=== PATIENT | male | born 1970 | race Hispanic/Latino ===

== ENCOUNTER 2017-05-08 14:06 | Emergency (ER) | payer OTHER ==
[2017-05-08 14:14] VITALS: TEMP 98.5; O2SAT 100
[2017-05-08 14:45] VITALS: PULSE 81
--- NOTE | 2017-05-08 15:15 | C.PDOC ---
History Of Present Illness 46 y/o male with PMHx of HTN, sleep apnea and Anxiety presents to ED with complaints of mid sternal chest tightness radiating to right side since this morning after cardio work out. Patient states chest pain has been intermittent and has noticed being out of breath, states she had similar episode 1 week ago but resolved on its own. Patient denies cough, nausea, diaphoresis, headache, fever, chills or any other complaints at this time. Time Seen by Provider: 05/08/17 14:23 Chief Complaint (Nursing): Chest Pain History Per: Patient History/Exam Limitations: no limitations Onset/Duration Of Symptoms: Days Current Symptoms Are (Timing): Still Present Quality: Tightness Past Medical History Reviewed: Historical Data, Nursing Documentation, Vital Signs Vital Signs: Last Vital Signs Temp 98.5 F 05/08/17 14:12 Pulse 81 05/08/17 14:38 Resp 20 05/08/17 14:38 BP 119/78 05/08/17 14:38 Pulse Ox 100 05/08/17 17:47 - Medical History PMH: Anxiety, HTN, Sleep Apnea Surgical History: Hernia Repair Family History: States: No Known Family Hx - Social History Hx Alcohol Use: Yes Hx Substance Use: Yes - Immunization History Hx Influenza Vaccination: No Review Of Systems Except As Marked, All Systems Reviewed And Found Negative. Cardiovascular: Positive for: Chest Pain Respiratory: Positive for: Shortness of Breath Physical Exam - Physical Exam Appears: Non-toxic, No Acute Distress Skin: Warm, Dry, No Rash Head: Atraumatic, Normacephalic Oral Mucosa: Moist Neck: Normal ROM, Supple Chest: Symmetrical, No Tenderness Cardiovascular: Rhythm Regular Respiratory: Normal Breath Sounds, No Rales, No Rhonchi, No Wheezing Gastrointestinal/Abdominal: Soft, No Tenderness, No Guarding, No Rebound Extremity: Normal ROM, No Pedal Edema, Capillary Refill (<2 seconds) Neurological/Psych: Oriented x3 ED Course And Treatment - Laboratory Results Result Diagrams: 05/08/17 15:36 05/08/17 15:36 ECG: Interpreted By Me, Viewed By Me ECG Rhythm: Sinus Rhythm ECG Interpretation: Normal Rate From EC (bpm) O2 Sat by Pulse Oximetry: 100 (RA) Pulse Ox Interpretation: Normal Medical Decision Making Medical Decision Making: Assessment: Chest pain Progress: Patient admitted under Dr. Keenan service to Tele obs for chest pain Leaving Against Medical Advice (AMA): This patient is choosing to leave against medical advice. I have personally explained to the pt that choosing to do so may result in permanent bodily harm or . I have discussed at great length that without further evaluation and monitoring there may be unforeseen circumstances and/or deterioration causing permanent bodily harm or as a result of their choice. The pt verbalized these risks back to the physician in laymans terms. The pt is alert, oriented, and shows the mental capacity to make clear decisions regarding the pts health care at this time. The pt continues to wish to leave against medical advice. In light of the pts decision to leave AMA, follow-up has been arranged and the pt is aware of the importance of following up as instructed. The pt has been advised that they should return to the ED immediately if they change their mind at any time, or if their condition begins to change or worsen in any way. Disposition Counseled Patient/Family Regarding: Studies Performed, Diagnosis - Disposition Disposition: AGAINST MEDICAL ADVICE Disposition Time: 17:48 Condition: STABLE - POA Core Measure Indicators: Chest Pain - Clinical Impression Clinical Impression: Chest pain - Scribe Statement The provider has reviewed the documentation as recorded by the Delmaribfrancisco Agrawal All medical record entries made by the Delmaribfrancisco were at my direction and personally dictated by me. I have reviewed the chart and agree that the record accurately reflects my personal performance of the history, physical exam, medical decision making, and the department course for this patient. I have also personally directed, reviewed, and agree with the discharge instructions and disposition.
--- NOTE | 2017-05-08 15:33 | RAD ---
HISTORY: chest pain COMPARISON: None available. TECHNIQUE: Chest, one view. FINDINGS: Examination limited by habitus. LUNGS: No focal consolidation. Please note that chest x-ray has limited sensitivity for the detection of pulmonary masses. PLEURA: No significant pleural effusion identified. No definite pneumothorax . CARDIOVASCULAR: Heart size appears within normal limits. OSSEOUS STRUCTURES: No acute osseous abnormality identified. VISUALIZED UPPER ABDOMEN: Unremarkable. OTHER FINDINGS: None. IMPRESSION: No focal consolidation identified.
[2017-05-08 15:52] LABS: BASO % 0.4 % (0.0-2.0); EOS % 0.4 % (0.0-4.0); HEMOGLOBIN 15.2 g/dL (12.0-18.0); LYMPH # 1.4 K/uL (1.0-4.3); LYMPH % 15.1 % (20.0-40.0); MEAN CORPUSCULAR HEMOGLOBIN 30.4 pg (27.0-31.0); MEAN CORPUSCULAR HGB CONC 35.4 g/dL (33.0-37.0); MONO # 0.8 K/uL (0.0-0.8); MONO % 8.1 % (0.0-10.0); NEUT # 7.1 K/uL (1.8-7.0); NRBC % 0.1 % (0.0-2.0); RBC 5.01 Mil/uL (4.40-5.90); RED CELL DISTRIBUTION WIDTH 13.3 % (11.5-14.5); WHITE BLOOD COUNT 9.3 K/uL (4.8-10.8)
[2017-05-08 15:54] LABS: ALB/GLOB RATIO 1.4 (1.0-2.1); ALBUMIN 3.7 g/dL (3.5-5.0); ALT/SGPT 44 U/L (21-72); AST/SGOT 29 U/L (17-59); BLOOD UREA NITROGEN 15 mg/dL (9-20); CALCIUM 8.1 mg/dl (8.6-10.4); GFR AFRICAN-AMERICAN > 60; GFR NON-AFRICAN AMERICAN > 60
[2017-05-08 15:57] LABS: MEAN CELL VOLUME 85.8 fL (80.0-94.0)
[2017-05-08] MEDS ORDERED: Potassium Chloride 20 mEq ER Tab PO STA (16:07)
[2017-05-08] MEDS ORDERED: Potassium Chloride 20 mEq ER Tab PO ONE (16:19)
[2017-05-08 17:49] VITALS: BP 119/76; RESP 18
== END 2017-05-08 17:45 | disposition left against medical advice (07) ==
LOC: C.ER 14:06 → UNDOADMOB 16:26 → C.9E 16:26
DX: R07.9 Chest pain, unspecified (principal); I10 Essential (primary) hypertension; G47.30 Sleep apnea, unspecified

== ENCOUNTER 2018-05-29 17:43 | Emergency (ER) | payer OTHER ==
--- NOTE | 2018-05-29 19:09 | C.PDOC ---
Chief Complaint (Nursing): Chest Pain Past Medical History Vital Signs: Last Vital Signs Temp 97.8 F 05/29/18 17:51 Pulse 66 05/29/18 17:51 Resp 18 05/29/18 17:51 BP 147/91 H 05/29/18 17:51 Pulse Ox 100 05/29/18 17:51 - Medical History PMH: Anxiety, HTN, Sleep Apnea Denies: Chronic Kidney Disease Surgical History: Hernia Repair - Social History Hx Alcohol Use: Yes Hx Substance Use: Yes - Immunization History Hx Influenza Vaccination: No ED Course And Treatment ECG: Interpreted By Me, Viewed By Me ECG Rhythm: Sinus Rhythm ECG Interpretation: Normal, No Acute Changes Interpretation Of ECG: NSR, no acute changes, normal tracings. Rate From EC O2 Sat by Pulse Oximetry: 100 Pulse Ox Interpretation: Normal Disposition - Disposition Forms: [facility] [facility] (Nauruan)
--- NOTE | 2018-05-29 19:11 | C.PDOC ---
History Of Present Illness 47 y/o male presents to the ED complaining of left-sided chest wall pain on and off for 2 weeks. No lightheadedness, dizziness, syncope, or SOB. Patient admits to having a dry cough. No fevers or chills. Time Seen by Provider: 05/29/18 19:00 Chief Complaint (Nursing): Chest Pain History Per: Patient History/Exam Limitations: no limitations Onset/Duration Of Symptoms: Intermittent Episodes Current Symptoms Are (Timing): Still Present Past Medical History Reviewed: Historical Data, Nursing Documentation, Vital Signs Vital Signs: Last Vital Signs Temp 97.8 F 05/29/18 17:51 Pulse 66 05/29/18 17:51 Resp 18 05/29/18 17:51 BP 147/91 H 05/29/18 17:51 Pulse Ox 100 05/29/18 19:08 - Medical History PMH: Anxiety, HTN, Sleep Apnea Denies: Chronic Kidney Disease Surgical History: Back Surgery, Hernia Repair Family History: States: Unknown Family Hx - Social History Hx Tobacco Use: No Hx Alcohol Use: Yes Hx Substance Use: Yes - Immunization History Hx Influenza Vaccination: No Review Of Systems Constitutional: Negative for: Fever, Chills Eyes: Negative for: Vision Change Cardiovascular: Positive for: Chest Pain. Negative for: Palpitations Respiratory: Positive for: Cough. Negative for: Shortness of Breath, Wheezing Gastrointestinal: Negative for: Nausea, Vomiting, Diarrhea Musculoskeletal: Negative for: Back Pain Neurological: Negative for: Weakness, Headache, Dizziness Physical Exam - Physical Exam Appears: Non-toxic, No Acute Distress Skin: Warm, Dry, No Diaphoretic Head: Atraumatic, Normacephalic Eye(s): bilateral: Normal Inspection, PERRL, EOMI Oral Mucosa: Moist Neck: Normal ROM Chest: Symmetrical, No Tenderness (to chest wall) Cardiovascular: Rhythm Regular, No Murmur Respiratory: Normal Breath Sounds, No Rales, No Rhonchi, No Wheezing Gastrointestinal/Abdominal: Soft, No Tenderness, No Distention Extremity: Bilateral: Atraumatic, Normal Color And Temperature Pulses: Left Dorsalis Pedis: Normal, Right Dorsalis Pedis: Normal Neurological/Psych: Oriented x3 Gait: Steady ED Course And Treatment - Laboratory Results Result Diagrams: 05/29/18 19:12 05/29/18 19:12 ECG: Interpreted By Me, Viewed By Me ECG Rhythm: Sinus Rhythm ECG Interpretation: Normal, No Acute Changes Interpretation Of ECG: NSR, no acute changes, normal tracings. Rate From EC O2 Sat by Pulse Oximetry: 100 (RA) Pulse Ox Interpretation: Normal - Radiology CXR: Interpreted by Me, Viewed By Me CXR Interpretation: Yes: No Acute Disease, Other (normal chest film). No: Infiltrates Progress Note: EKG, CXR, and labs ordered and reviewed. Disposition Counseled Patient/Family Regarding: Diagnosis - Disposition Referrals: at [facility] [Outside] Disposition: HOME/ ROUTINE Disposition Time: 21:30 Condition: STABLE Prescriptions: Naproxen 375 mg PO TIDPC #14 tablet Instructions: Chest Pain Forms: [employer] [facility] [employer] [facility] (Albanian) - POA Present On Arrival: None - Clinical Impression Clinical Impression: Chest pain - Scribe Statement The provider has reviewed the documentation as recorded by the Aden De León Provider Attestation: All medical record entries made by the Delmaribe were at my direction and personally dictated by me. I have reviewed the chart and agree that the record accurately reflects my personal performance of the history, physical exam, medical decision making, and the department course for this patient. I have also personally directed, reviewed, and agree with the discharge instructions and disposition.
[2018-05-29 19:18] LABS: BASO % 0.4 % (0.0-2.0); EOS # 0.1 K/uL (0.0-0.7); HEMOGLOBIN 15.9 g/dL (12.0-18.0); LYMPH # 1.8 K/uL (1.0-4.3); LYMPH % 32.1 % (20.0-40.0); MEAN CORPUSCULAR HEMOGLOBIN 29.8 pg (27.0-31.0); MEAN CORPUSCULAR HGB CONC 33.8 g/dL (33.0-37.0); MEAN PLATELET VOLUME 8.8 fL (7.2-11.7); MONO # 0.5 K/uL (0.0-0.8); MONO % 9.3 % (0.0-10.0); NEUT # 3.2 K/uL (1.8-7.0); NEUT % 57.2 % (50.0-75.0); RBC 5.34 Mil/uL (4.40-5.90); RED CELL DISTRIBUTION WIDTH 12.7 % (11.5-14.5); WHITE BLOOD COUNT 5.5 K/uL (4.8-10.8)
[2018-05-29 19:30] LABS: ALB/GLOB RATIO 1.8 (1.0-2.1); ALBUMIN 4.5 g/dL (3.5-5.0); ALT/SGPT 38 U/L (21-72); AST/SGOT 35 U/L (17-59); BLOOD UREA NITROGEN 18 mg/dL (9-20); CALCIUM 9.2 mg/dl (8.6-10.4); GFR NON-AFRICAN AMERICAN > 60
[2018-05-29] MEDS ORDERED: Naproxen 550 mg Tab PO STA (21:28)
[2018-05-29] MEDS ORDERED: Naproxen 550 mg Tab PO ONE (21:37)
[2018-05-29 22:08] VITALS: BP 147/89; PULSE 84; RESP 17; TEMP 98; O2SAT 98
--- NOTE | 2018-05-30 08:27 | RAD ---
HISTORY: chest pain COMPARISON: Chest x-ray performed 05/08/17 TECHNIQUE: Chest PA and lateral FINDINGS: Skinfolds obscure evaluation of the bilateral hemithoraces. LUNGS: No focal consolidation. Please note that chest x-ray has limited sensitivity for the detection of pulmonary masses. PLEURA: No significant pleural effusion identified. No definite pneumothorax . CARDIOVASCULAR: Heart size appears within normal limits. No atherosclerotic calcification present. OSSEOUS STRUCTURES: No acute osseous abnormality identified. VISUALIZED UPPER ABDOMEN: Unremarkable. OTHER FINDINGS: None. IMPRESSION: No focal consolidation.
--- NOTE | 2018-05-31 08:06 | CARD ---
APPROVED REPORT Date of service: 05/29/2018 EKG Measurement Heart [id number] CO 152P42 [id number] <Conclusion> Normal sinus rhythm Normal ECG
--- NOTE | 2018-05-31 08:10 | CARD ---
APPROVED REPORT Date of service: 05/29/2018 EKG Measurement Heart [id number] MA 160P68 [id number] <Conclusion> Normal sinus rhythm Normal ECG
== END 2018-05-29 22:07 | disposition home or self-care (01) ==
LOC: C.ER 17:43
DX: R07.9 Chest pain, unspecified (principal)

== ENCOUNTER 2018-08-20 10:46 | Emergency (ER) | payer OTHER ==
[2018-08-20] MEDS ORDERED: Sodium Chloride 0.9% 1,000 ML IV ONE ×3 (11:49→16:12)
[2018-08-20 12:58] LABS: BASO % 0.1 % (0.0-2.0); EOS % 0.1 % (0.0-4.0); HEMOGLOBIN 14.9 g/dL (12.0-18.0); LYMPH # 0.3 K/uL (1.0-4.3); LYMPH % 2.6 % (20.0-40.0); MEAN CELL VOLUME 86.9 fL (80.0-94.0); MEAN CORPUSCULAR HEMOGLOBIN 30.8 pg (27.0-31.0); MEAN CORPUSCULAR HGB CONC 35.4 g/dL (33.0-37.0); MEAN PLATELET VOLUME 9.1 fL (7.2-11.7); MONO # 0.4 K/uL (0.0-0.8); MONO % 3.6 % (0.0-10.0); NEUT # 10.8 K/uL (1.8-7.0); NEUT % 93.6 % (50.0-75.0); PLATELET COUNT 143 K/uL (130-400); RBC 4.84 Mil/uL (4.40-5.90); RED CELL DISTRIBUTION WIDTH 12.9 % (11.5-14.5)
[2018-08-20 13:01] LABS: WHITE BLOOD COUNT 11.5 K/uL (4.8-10.8)
[2018-08-20 13:10] LABS: ALB/GLOB RATIO 1.5 (1.0-2.1); ALBUMIN 3.3 g/dL (3.5-5.0); ALT/SGPT 46 U/L (21-72); AST/SGOT 43 U/L (17-59); BLOOD UREA NITROGEN 18 mg/dL (9-20); CALCIUM 8.8 mg/dl (8.6-10.4); GFR NON-AFRICAN AMERICAN > 60; LIPASE 114 U/L (23-300)
[2018-08-20 13:52] LABS: SQUAMOUS EPITHIAL 1 /hpf (0-5); URINE BILIRUBIN NEGATIVE (NEGATIVE); URINE BLOOD NEGATIVE (NEGATIVE); URINE CLARITY Hazy (Clear); URINE COLOR Yellow (YELLOW); URINE GLUCOSE (UA) NORMAL (Normal); URINE LEUKOCYTE ESTERASE NEG Leu/uL (Negative); URINE PROTEIN NEGATIVE (NEGATIVE); URINE UROBILINOGEN NORMAL mg/dL (0.2-1.0)
[2018-08-20 14:01] LABS: BANDS 9 % (0-2); LYMPHOCYTE 5 % (20-40); MONOCYTE 5 % (0-10); NEUTROPHIL 81 % (50-75); PLATELET ESTIMATE NORMAL (NORMAL); TOTAL CELLS COUNTED 100
--- NOTE | 2018-08-20 14:54 | C.PDOC ---
History Of Present Illness Patient is a 47 year old male, with a PMHx of sleep apnea, who presents to the ED c/o crampy abdominal pain with associated nausea and diarrhea onset 1 day. He reports also experiencing fever since today. Patient denies any chills, or vomiting. Time Seen by Provider: 08/20/18 11:31 Chief Complaint (Nursing): Abdominal Pain History Per: Patient History/Exam Limitations: no limitations Onset/Duration Of Symptoms: Days (1) Current Symptoms Are (Timing): Still Present Quality Of Discomfort: Cramping, "Pain" Associated Symptoms: Fever, Nausea, Diarrhea. denies: Chills, Vomiting Recent travel outside of the [place]: No Additional History Per: Patient Past Medical History Reviewed: Historical Data, Nursing Documentation, Vital Signs Vital Signs: Last Vital Signs Temp 99.5 F 08/20/18 12:34 Pulse 91 H 08/20/18 12:34 Resp 18 08/20/18 12:34 BP 104/60 08/20/18 12:34 Pulse Ox 97 08/20/18 12:34 Primary Care Provider: Non [facility] Provider, - Medical History PMH: Anxiety, HTN, Sleep Apnea Denies: Chronic Kidney Disease Surgical History: Back Surgery, Hernia Repair Family History: States: Unknown Family Hx - Social History Hx Tobacco Use: No Hx Alcohol Use: Yes Hx Substance Use: Yes - Immunization History Hx Influenza Vaccination: No Review Of Systems Constitutional: Positive for: Fever. Negative for: Chills Gastrointestinal: Positive for: Nausea, Abdominal Pain, Diarrhea. Negative for: Vomiting Physical Exam - Physical Exam Appears: Non-toxic, No Acute Distress Skin: Warm, Dry Head: Atraumatic, Normacephalic Eye(s): bilateral: Normal Inspection Oral Mucosa: Moist Neck: Normal ROM, Supple Chest: Symmetrical, No Deformity Cardiovascular: Rhythm Regular, No Murmur Respiratory: Normal Breath Sounds, No Rales, No Rhonchi, No Wheezing Gastrointestinal/Abdominal: Soft, Tenderness (minimally ) Extremity: Normal ROM Neurological/Psych: Oriented x3, Normal Speech, Normal Cognition Gait: Steady ED Course And Treatment - Laboratory Results Result Diagrams: 08/20/18 15:44 08/20/18 12:51 Lab Results: Total Bilirubin 0.9 mg/dL (0.2-1.3) 08/20/18 12:51 AST 43 U/L (17-59) 08/20/18 12:51 ALT 46 U/L (21-72) 08/20/18 12:51 Alkaline Phosphatase 70 U/L (38-126) 08/20/18 12:51 Total Protein 5.6 g/dL (6.3-8.3) L 08/20/18 12:51 Albumin 3.3 g/dL (3.5-5.0) L D 08/20/18 12:51 Globulin 2.2 gm/dL (2.2-3.9) 08/20/18 12:51 Albumin/Globulin Ratio 1.5 (1.0-2.1) 08/20/18 12:51 Lipase 114 U/L (23-300) 08/20/18 12:51 Urine Color Yellow (YELLOW) 08/20/18 13:38 Urine Clarity Hazy (Clear) 08/20/18 13:38 Urine pH 5.0 (5.0-8.0) 08/20/18 13:38 Ur Specific [place] 1.019 (1.003-1.030) 08/20/18 13:38 Urine Protein Negative mg/dL (NEGATIVE) 08/20/18 13:38 Urine Glucose (UA) Normal mg/dL (Normal) 08/20/18 13:38 Urine Ketones Negative mg/dL (NEGATIVE) 08/20/18 13:38 Urine Blood Negative (NEGATIVE) 08/20/18 13:38 Urine Nitrate Negative (NEGATIVE) 08/20/18 13:38 Urine Bilirubin Negative (NEGATIVE) 08/20/18 13:38 Urine Urobilinogen Normal mg/dL (0.2-1.0) 08/20/18 13:38 Ur Leukocyte Esterase Neg Lexi/uL (Negative) 08/20/18 13:38 Urine WBC (Auto) 2 /hpf (0-5) 08/20/18 13:38 Urine RBC (Auto) 1 /hpf (0-3) 08/20/18 13:38 Ur Squamous Epith Cells 1 /hpf (0-5) 08/20/18 13:38 Lab Interpretation: Normal O2 Sat by Pulse Oximetry: 97 (on RA) Pulse Ox Interpretation: Normal Progress Note: Treated with 2 liters of NSS, bentyl IM, zofran and toradol. On re-evaluation feeling better, abdomen soft non-tender. Patient experienced additional episodes of diarrhea. Treated with additional IVF and tylenol. On re-evaluation abdomen soft Reassessment Condition: Improved Medical Decision Making Medical Decision Making: Plan: Labs UA Bentyl 20mg IM Toradol 30mg IVP Zofran 4mg IVP IV Fluids Upon reevaluation, patient initially felt better but is presently still experiencing episodes of diarrhea. Disposition Counseled Patient/Family Regarding: Studies Performed, Diagnosis, Need For Followup - Disposition Referrals: Andrey [email or web address] [Staff Provider] - Disposition: HOME/ ROUTINE Disposition Time: 17:00 Condition: CRITICAL Additional Instructions: Drink lots of fluids Return to ED if any increase symptoms Instructions: Viral Gastroenteritis Forms: [employer] (Icelandic) - POA Present On Arrival: None - Clinical Impression Clinical Impression: Diarrhea, Gastroenteritis - Scribe Statement The provider has reviewed the documentation as recorded by the Delmaribfrancisco Ibarra All medical record entries made by the Scribe were at my direction and personally dictated by me. I have reviewed the chart and agree that the record accurately reflects my personal performance of the history, physical exam, medical decision making, and the department course for this patient. I have also personally directed, reviewed, and agree with the discharge instructions and disposition.
[2018-08-20 15:48] LABS: BASO % 0.2 % (0.0-2.0); HEMOGLOBIN 15.3 g/dL (12.0-18.0); LYMPH # 0.5 K/uL (1.0-4.3); LYMPH % 5.1 % (20.0-40.0); MEAN CELL VOLUME 88.5 fL (80.0-94.0); MEAN CORPUSCULAR HEMOGLOBIN 30.7 pg (27.0-31.0); MEAN CORPUSCULAR HGB CONC 34.7 g/dL (33.0-37.0); MEAN PLATELET VOLUME 8.5 fL (7.2-11.7); MONO # 0.3 K/uL (0.0-0.8); NEUT # 8.3 K/uL (1.8-7.0); NEUT % 91.7 % (50.0-75.0); RBC 4.99 Mil/uL (4.40-5.90); RED CELL DISTRIBUTION WIDTH 12.8 % (11.5-14.5); WHITE BLOOD COUNT 9.1 K/uL (4.8-10.8)
[2018-08-20 17:04] VITALS: BP 109/65; RESP 18
[2018-08-20 17:37] VITALS: PULSE 106; TEMP 100.6
[2018-08-20 17:46] VITALS: O2SAT 97
== END 2018-08-20 17:38 | disposition home or self-care (01) ==
LOC: C.ER 10:46
DX: K52.9 Noninfective gastroenteritis and colitis, unspecified (principal)
CPT/HCPCS: 36415; 80053; 81001; 83690; 85025; 96361; 96372; 96374; 96375; 99285; J0500; J1885; J2405; J7030

== ENCOUNTER 2018-08-22 16:17 | Inpatient (IN) | payer OTHER ==
[2018-08-22] MEDS ORDERED: Iohexol 240 (50 ml) PO STA (17:46)
[2018-08-22] MEDS ORDERED: Iohexol 240 (50 ml) ONE (18:19)
[2018-08-22 18:33] LABS: BASO % 0.1 % (0.0-2.0); EOS % 0.3 % (0.0-4.0); HEMOGLOBIN 14.3 g/dL (12.0-18.0); LYMPH # 0.7 K/uL (1.0-4.3); LYMPH % 8.6 % (20.0-40.0); MEAN CELL VOLUME 85.7 fL (80.0-94.0); MEAN CORPUSCULAR HEMOGLOBIN 30.3 pg (27.0-31.0); MEAN CORPUSCULAR HGB CONC 35.4 g/dL (33.0-37.0); MEAN PLATELET VOLUME 8.8 fL (7.2-11.7); MONO # 0.9 K/uL (0.0-0.8); MONO % 11.9 % (0.0-10.0); NEUT # 6.1 K/uL (1.8-7.0); NEUT % 79.1 % (50.0-75.0); PLATELET COUNT 131 K/uL (130-400); WHITE BLOOD COUNT 7.7 K/uL (4.8-10.8)
[2018-08-22 18:37] LABS: URINE BILIRUBIN NEGATIVE (NEGATIVE); URINE CLARITY Clear (Clear); URINE COLOR Straw (YELLOW); URINE GLUCOSE (UA) NORMAL (Normal); URINE LEUKOCYTE ESTERASE NEG Leu/uL (Negative); URINE PROTEIN NEGATIVE (NEGATIVE); URINE UROBILINOGEN NORMAL mg/dL (0.2-1.0)
[2018-08-22 18:40] LABS: URINE BLOOD TRACE (NEGATIVE)
--- NOTE | 2018-08-22 18:51 | C.PDOC ---
History Of Present Illness Patient presents to ED c/o diffuse abdominal pain associated with several episodes of bloody stools. He was seen in our ED two days ago, but reports no improvement in symptoms. PMhx of EARNESTINE, HTN, anxiety. Time Seen by Provider: 08/22/18 17:32 Chief Complaint (Nursing): Abdominal Pain History Per: Patient History/Exam Limitations: no limitations Onset/Duration Of Symptoms: Days Current Symptoms Are (Timing): Still Present Severity: Moderate Location Of Pain/Discomfort: Diffuse Quality Of Discomfort: "Pain" Past Medical History Reviewed: Historical Data, Nursing Documentation, Vital Signs Vital Signs: Last Vital Signs Temp 98.9 F 08/22/18 16:34 Pulse 90 08/22/18 16:34 Resp 18 08/22/18 16:34 BP 132/73 08/22/18 16:34 Pulse Ox 100 08/22/18 16:34 Primary Care Provider: Non [facility] Provider, - Medical History PMH: Anxiety, HTN, Sleep Apnea Surgical History: Back Surgery, Hernia Repair Family History: States: No Known Family Hx - Social History Hx Tobacco Use: No Hx Alcohol Use: Yes Hx Substance Use: No - Immunization History Hx Influenza Vaccination: No Review Of Systems Constitutional: Negative for: Fever, Chills Cardiovascular: Negative for: Chest Pain, Palpitations Respiratory: Negative for: Cough, Shortness of Breath Gastrointestinal: Positive for: Abdominal Pain, Melena Genitourinary: Negative for: Dysuria, Hematuria Skin: Negative for: Rash Physical Exam - Physical Exam Appears: Well, Non-toxic, No Acute Distress Skin: Normal Color, Warm, Dry, No Pale Head: Normacephalic Eye(s): bilateral: Normal Inspection Oral Mucosa: Moist Cardiovascular: Rhythm Regular Respiratory: Normal Breath Sounds, No Rales, No Rhonchi, No Wheezing Gastrointestinal/Abdominal: Bowel Sounds, Soft, Tenderness ((+) epigastric abdominal pain), No Guarding, No Rebound Rectal: Rectal Tone (normal ), Blood Streaked Stool, No Hemorrhoids, No Mass, No Tenderness Back: Normal Inspection, No CVA Tenderness Neurological/Psych: Oriented x3 ED Course And Treatment - Laboratory Results Result Diagrams: 08/22/18 18:27 08/22/18 18:27 Lab Results: Urine Color Straw (YELLOW) 08/22/18 18:27 Urine Clarity Clear (Clear) 08/22/18 18:27 Urine pH 6.0 (5.0-8.0) 08/22/18 18:27 Ur Specific [place] 1.002 (1.003-1.030) L 08/22/18 18:27 Urine Protein Negative mg/dL (NEGATIVE) 08/22/18 18:27 Urine Glucose (UA) Normal mg/dL (Normal) 08/22/18 18:27 Urine Ketones Negative mg/dL (NEGATIVE) 08/22/18 18:27 Urine Blood Trace (NEGATIVE) H 08/22/18 18:27 Urine Nitrate Negative (NEGATIVE) 08/22/18 18:27 Urine Bilirubin Negative (NEGATIVE) 08/22/18 18:27 Urine Urobilinogen Normal mg/dL (0.2-1.0) 08/22/18 18:27 Ur Leukocyte Esterase Neg Lexi/uL (Negative) 08/22/18 18:27 Urine WBC (Auto) < 1 /hpf (0-5) 08/22/18 18:27 Urine RBC (Auto) < 1 /hpf (0-3) 08/22/18 18:27 O2 Sat by Pulse Oximetry: 100 (RA) Pulse Ox Interpretation: Normal Progress Note: Blood work, UA, SFOB, CT scan abd/pelvis ordered. Disposition - Disposition Disposition Time: 19:05 Condition: STABLE Forms: [facility] (Trinidadian) - Clinical Impression Clinical Impression: Abdominal pain, Rectal bleeding Physician Patient Turnover Patient Signed Over To: Salomón Mcghee Handoff Comments: pending labs, CT scan
[2018-08-22 18:59] LABS: ALB/GLOB RATIO 1.2 (1.0-2.1); ALBUMIN 3.3 g/dL (3.5-5.0); ALT/SGPT 41 U/L (21-72); AST/SGOT 77 U/L (17-59); BLOOD UREA NITROGEN 14 mg/dL (9-20); CALCIUM 8.9 mg/dl (8.6-10.4); GFR NON-AFRICAN AMERICAN > 60; LIPASE 60 U/L (23-300)
[2018-08-22] MEDS ORDERED: Sodium Chloride 0.9% 1,000 ML IV ONE (19:04)
[2018-08-22 19:24] LABS: BANDS 12 % (0-2); LYMPHOCYTE 8 % (20-40); MONOCYTE 17 % (0-10); NEUTROPHIL 63 % (50-75); TOTAL CELLS COUNTED 100
[2018-08-22] MEDS ORDERED: Piperacillin/Tazobact 3.375 gm 100 ML IVPB STA (19:24)
[2018-08-22 19:27] LABS: PLATELET ESTIMATE NORMAL (NORMAL)
[2018-08-22] MEDS ORDERED: Piperacillin/Tazobact 3.375 gm 100 ML IVPB ONE (20:12)
[2018-08-22] MEDS ORDERED: Pantoprazole 80 MG in Sodium Chloride 0.9% 100 ML IVP SCH ×2 (21:30→22:00)
[2018-08-22] MEDS ORDERED: Pantoprazole 80 MG in Sodium Chloride 0.9% 100 ML IVP ONE (22:00)
[2018-08-22] MEDS: Sodium Chloride 0.9% 1,000 ML IV SCH (22:30)
[2018-08-23] MEDS: Oxymetazoline 0.05% Nasal Spray (30 ml) NS SCH (00:49)
[2018-08-23 01:42] VITALS: RESP 20
[2018-08-23] MEDS: Ciprofloxacin 400mg/200ml D5W 400 MG/200 ML BAG IVPB SCH ×2 (07:08→18:00)
[2018-08-23] MEDS: Sodium Chloride 0.9% 1,000 ML IV SCH ×2 (09:15→13:16)
[2018-08-23] MEDS: metroNIDAZOLE IV 500 mg/100 ml 500 MG/100 ML BAG IVPB SCH ×2 (10:29→21:06)
--- NOTE | 2018-08-23 10:37 | CT ---
Date of service: 08/22/2018 PROCEDURE: CT Abdomen and Pelvis without intravenous contrast HISTORY: abdominal pain, bloody stool COMPARISON: None. TECHNIQUE: Multiple contiguous axial images were performed through the abdomen and pelvis without the use of intravenous contrast. Subsequently, sagittal and coronal reformatted images were obtained. Radiation dose: Total exam DLP = 933.29 mGy-cm. This CT exam was performed using one or more of the following dose reduction techniques: Automated exposure control, adjustment of the mA and/or kV according to patient size, and/or use of iterative reconstruction technique. FINDINGS: LOWER THORAX: Small pericardial effusion. LIVER: Unremarkable. No gross lesion or ductal dilatation. GALLBLADDER AND BILE DUCTS: Unremarkable. PANCREAS: Unremarkable. No gross lesion or ductal dilatation. SPLEEN: Unremarkable. ADRENALS: Nodular thickening of the adrenal glands. KIDNEYS AND URETERS: Bilateral perinephric fat stranding. VASCULATURE: Atherosclerotic calcification and plaque within the aorta. BOWEL: Diffuse thickening of the left hemicolon suggestive for a colitis. Moderate fecal retention in the right hemicolon. APPENDIX: Unremarkable. Normal appendix. PERITONEUM: Unremarkable. No free fluid. No free air. LYMPH NODES: Unremarkable. No enlarged lymph nodes. BLADDER: Unremarkable. REPRODUCTIVE: Unremarkable. BONES: Degenerative and postsurgical changes in the spine. OTHER FINDINGS: None. IMPRESSION: 1. Diffuse thickening of the left hemicolon suggestive for a colitis. 2. Small pericardial effusion. 3. Nodular thickening of the adrenal glands. Additional findings as above. A preliminary report was generated at 8:41 p.m. on 08/22/[address] James Ahuja from [facility]
--- NOTE | 2018-08-23 10:46 | CP.PCM.HP ---
History of Present Illness - History of Present Illness History of Present Illness: CHART REVIEWED. PT SEEN AND EXAMINED, COVERING DR Janet MCGUIRE 47 YO W MALE WITH A HX HTN, EARNESTINE, ANXIETY-DEPRESSION, +ADD, PUD, LOW TESTOSTE TANYA, POLYSUB ABUSE IN PAST +STEROIDS, +COCAINE., ADM WITH INCREASED MOD +RECTAL BLEED X 3 DAYS +MELENA AND BRBPR, NO N/V. +NSAIDS. VAGUE LLQ ABD PAINS. +FEVER, NO CHILLS., NO HX COLITIS. NO SOB. NO CP. SEEN IN ER FEW DAYS AGO AND RELEASED. Present on Admission - Present on Admission Any Indicators Present on Admission: No Review of Systems - Review of Systems All systems: reviewed and no additional remarkable complaints except - Constitutional Constitutional: Fever. absent: Chills - EENT Eyes: absent: Change in Vision Ears: absent: Decreased Hearing Nose/Mouth/Throat: absent: Nasal Congestion - Cardiovascular Cardiovascular: absent: Chest Pain - Respiratory Respiratory: absent: Cough, Dyspnea on Exertion - Gastrointestinal Gastrointestinal: Abdominal Pain, Hematochezia, Melena. absent: Hematemesis, Nausea, Vomiting - Genitourinary Genitourinary: Hematuria - Musculoskeletal Musculoskeletal: Back Pain, Neck Pain - Integumentary Integumentary: absent: Rash - Neurological Neurological: absent: Confusion, Focal Weakness - Psychiatric Psychiatric: Anxiety, Depression - Endocrine Endocrine: Change in Libido - Hematologic/Lymphatic Hematologic: absent: Lymphadenopathy Past Patient History - Past Medical History & Family History Past Medical History?: Yes Past Family History: Reviewed and not pertinent Pertinent Family History: HTN - Past Social History Smoking Status: Never Smoked Chewing Tobacco Use: No Cigar Use: No Alcohol: None Drugs: Cocaine, Other (STEROIDS) - CARDIAC Hx Hypertension: Yes - PULMONARY Hx Respiratory Disorders: No Hx Sleep Apnea: Yes - NEUROLOGICAL Hx Neurological Disorder: No - HEENT Hx HEENT Problems: No - RENAL Hx Chronic Kidney Disease: No - ENDOCRINE/METABOLIC Hx Endocrine Disorders: No - HEMATOLOGICAL/ONCOLOGICAL Hx Blood Disorders: No - INTEGUMENTARY Hx Dermatological Problems: No - MUSCULOSKELETAL/RHEUMATOLOGICAL Hx Musculoskeletal Disorders: No Hx Back Pain: Yes Hx Falls: No Hx Rhabdomyolysis: Yes - GASTROINTESTINAL Hx Gastritis: Yes - GENITOURINARY/GYNECOLOGICAL Hx Genitourinary Disorders: No - PSYCHIATRIC Hx Anxiety: Yes Hx Depression: Yes Hx Substance Use: No - SURGICAL HISTORY Hx Surgeries: Yes Hx Herniorrhaphy: Yes Hx Orthopedic Surgery: Yes (back) - ANESTHESIA Hx Anesthesia: Yes Hx Anesthesia Reactions: No Meds Home Medications: Home Medication List Medication Instructions Recorded Confirmed Type Ciprofloxacin [Cipro] 500 mg PO BID 5 Days #10 tab 08/24/18 Rx Metronidazole [Flagyl] 500 mg PO TID 7 Days #21 tablet 08/24/18 Rx Allergies/Adverse Reactions: Allergies Allergy/AdvReac Type Severity Reaction Status Date / Time No Known Allergies Allergy Verified 05/17/15 19:52 Physical Exam - Constitutional Appears: No Acute Distress - Head Exam Head Exam: ATRAUMATIC, NORMOCEPHALIC - Eye Exam Eye Exam: EOMI, Normal appearance - ENT Exam ENT Exam: Mucous Membranes Moist - Neck Exam Neck exam: Positive for: Normal Inspection - Respiratory Exam Respiratory Exam: absent: Wheezes, Respiratory Distress - Cardiovascular Exam Cardiovascular Exam: RRR, +S1, +S2 - GI/Abdominal Exam GI & Abdominal Exam: Soft. absent: Tenderness - Rectal Exam Rectal Exam: Deferred - Extremities Exam Extremities exam: Negative for: calf tenderness, pedal edema - Back Exam Back exam: absent: CVA tenderness (L), CVA tenderness (R) - Neurological Exam Neurological exam: Alert, CN II-XII Intact, Oriented x3 - Psychiatric Exam Psychiatric exam: Normal Mood Results - Vital Signs Recent Vital Signs: Last Vital Signs Temp 99.5 F 08/23/18 07:47 Pulse 95 H 08/23/18 07:47 Resp 20 08/23/18 07:47 BP 131/79 08/23/18 07:47 Pulse Ox 100 08/23/18 07:47 - Labs Result Diagrams: 08/24/18 07:53 08/24/18 07:53 Labs: Laboratory Results - last 24 hr 08/22/18 08/22/18 08/22/18 18:27 18:27 18:27 WBC 7.7 RBC 4.70 Hgb 14.3 Hct 40.3 MCV 85.7 D MCH 30.3 MCHC 35.4 RDW 13.0 Plt Count 131 MPV 8.8 Neut % (Auto) 79.1 H Lymph % (Auto) 8.6 L [place] % (Auto) 11.9 H Eos % (Auto) 0.3 Baso % (Auto) 0.1 Neut # (Auto) 6.1 Lymph # (Auto) 0.7 L [place] # (Auto) 0.9 H Eos # (Auto) 0.0 Baso # (Auto) 0.0 Neutrophils % (Manual) 63 Band Neutrophils % 12 H* Lymphocytes % (Manual) 8 L Monocytes % (Manual) 17 H Platelet Estimate Normal Sodium 126 L Potassium 4.9 Chloride 97 L Carbon Dioxide 20 L Anion Gap 14 BUN 14 Creatinine 0.9 Est GFR ( Amer) > 60 Est GFR (Non-Af Amer) > 60 Random Glucose 70 L D Lactic Acid Calcium 8.9 Total Bilirubin 0.9 AST 77 H D ALT 41 Alkaline Phosphatase 33 L D Total Protein 6.0 L Albumin 3.3 L Globulin 2.7 Albumin/Globulin Ratio 1.2 Lipase 60 Urine Color Straw Urine Clarity Clear Urine pH 6.0 Ur Specific [place] 1.002 L Urine Protein Negative Urine Glucose (UA) Normal Urine Ketones Negative Urine Blood Trace H Urine Nitrate Negative Urine Bilirubin Negative Urine Urobilinogen Normal Ur Leukocyte Esterase Neg Urine WBC (Auto) < 1 Urine RBC (Auto) < 1 Stool Occult Blood 08/22/18 08/23/18 18:45 09:04 WBC RBC Hgb Hct MCV MCH MCHC RDW Plt Count MPV Neut % (Auto) Lymph % (Auto) [place] % (Auto) Eos % (Auto) Baso % (Auto) Neut # (Auto) Lymph # (Auto) [place] # (Auto) Eos # (Auto) Baso # (Auto) Neutrophils % (Manual) Band Neutrophils % Lymphocytes % (Manual) Monocytes % (Manual) Platelet Estimate Sodium Potassium Chloride Carbon Dioxide Anion Gap BUN Creatinine Est GFR ( Amer) Est GFR (Non-Af Amer) Random Glucose Lactic Acid 1.1 Calcium Total Bilirubin AST ALT Alkaline Phosphatase Total Protein Albumin Globulin Albumin/Globulin Ratio Lipase Urine Color Urine Clarity Urine pH Ur Specific [place] Urine Protein Urine Glucose (UA) Urine Ketones Urine Blood Urine Nitrate Urine Bilirubin Urine Urobilinogen Ur Leukocyte Esterase Urine WBC (Auto) Urine RBC (Auto) Stool Occult Blood Positive H Assessment & Plan (1) HTN (hypertension) Status: Acute (2) Gastritis Status: Acute (3) Anxiety Status: Acute (4) Depression Status: Acute (5) Attention deficit disorder (ADD) in adult Status: Acute (6) Colitis Status: Acute (7) Rectal bleeding Status: Acute - Assessment and Plan (Free Text) Assessment: 47 YO MALE WITH A HX MULT MED PROBS ADM WITH RECTAL BLEED, DEHYDRATION. CT ABD REVIEWED. +LEFT HEMICOLON COLITIS NOTED. CONT IVF, EMPIRIC AB. FOR GI EVAL. GI/DVT PROPHYLAXIS. CONT CPAP QHS. DISCUSSED WITH STAFF AT LENGTH. MEDS REVIEWED. TIME SPENT 1HR.
[2018-08-23 10:56] LABS: BASO % 0.2 % (0.0-2.0); EOS % 0.1 % (0.0-4.0); HEMOGLOBIN 13.3 g/dL (12.0-18.0); LYMPH # 0.8 K/uL (1.0-4.3); LYMPH % 13.2 % (20.0-40.0); MEAN CELL VOLUME 86.9 fL (80.0-94.0); MEAN CORPUSCULAR HEMOGLOBIN 30.7 pg (27.0-31.0); MEAN CORPUSCULAR HGB CONC 35.4 g/dL (33.0-37.0); MEAN PLATELET VOLUME 8.8 fL (7.2-11.7); MONO % 15.6 % (0.0-10.0); NEUT # 4.3 K/uL (1.8-7.0); NEUT % 70.9 % (50.0-75.0); RBC 4.33 Mil/uL (4.40-5.90); RED CELL DISTRIBUTION WIDTH 13.2 % (11.5-14.5); WHITE BLOOD COUNT 6.1 K/uL (4.8-10.8)
[2018-08-23 11:06] LABS: ALB/GLOB RATIO 1.4 (1.0-2.1); ALT/SGPT 45 U/L (21-72); AST/SGOT 53 U/L (17-59); BLOOD UREA NITROGEN 12 mg/dL (9-20); CALCIUM 8.4 mg/dl (8.6-10.4); GFR NON-AFRICAN AMERICAN > 60
--- NOTE | 2018-08-23 11:12 | CP.PCM.CON ---
<Rico Smith - Last Filed: 08/23/18 11:38> History of Present Illness - History of Present Illness History of Present Illness: PGY5 GI Initial COnsult Note Joe Ferris is a 47M w/ hx of OA of the cervical spine, Depression, Anxiety, and HTn who presents to the ER with complaints of abd pain and diarrhea. Pt states that he started having abd pain in his LLQ and LUQ 4 days ago. He states that onset was sudden and gradually worsened. He noted initially having fever, chills and diaphoresis. He came to the ER 2 days prior with similar complaints and was diagnosed with viral gastroenteritis. He states that he started to have blood mixed with his stool the last few days. He notes about 1 tbl spoon quantity each BM. He notes that his BMs were mostly liquid with some formed stool. He states that prior to his arrival, he had about 12+ Bms. After his admissions he notes decreased frequency. Denies any fever chills or diaphoresis. Denies any recent travel, hospitalizations, weightloss. Admits to having chronic constipation prior to this episode. Denies any previous colonoscopy. Admits to EGD but does not recall findings. PMHx: sleep apnea, OA, depression, HTN, Anxiety PSHx: Lumbar fusion, left tricep repair Social hx: denies current use of tabacco use. Admits to drinking 3-4 shots of tequilla twice a week; denies illicit drugs Fmaily hx: denies any Gi related malignancies ROS: 12 point ROS conducted, neg other than above Past Patient History - Past Medical History & Family History Past Medical History?: Yes Past Family History: Reviewed and not pertinent - Past Social History Smoking Status: Never Smoked Chewing Tobacco Use: No Cigar Use: No Alcohol: None Drugs: Cocaine, Other (STEROIDS) - CARDIAC Hx Hypertension: Yes - PULMONARY Hx Respiratory Disorders: No Hx Sleep Apnea: Yes - NEUROLOGICAL Hx Neurological Disorder: No - HEENT Hx HEENT Problems: No - RENAL Hx Chronic Kidney Disease: No - ENDOCRINE/METABOLIC Hx Endocrine Disorders: No - HEMATOLOGICAL/ONCOLOGICAL Hx Blood Disorders: No - INTEGUMENTARY Hx Dermatological Problems: No - MUSCULOSKELETAL/RHEUMATOLOGICAL Hx Musculoskeletal Disorders: No Hx Back Pain: Yes Hx Falls: No Hx Rhabdomyolysis: Yes - GASTROINTESTINAL Hx Gastritis: Yes - GENITOURINARY/GYNECOLOGICAL Hx Genitourinary Disorders: No - PSYCHIATRIC Hx Anxiety: Yes Hx Depression: Yes Hx Substance Use: No - SURGICAL HISTORY Hx Surgeries: Yes Hx Herniorrhaphy: Yes Hx Orthopedic Surgery: Yes (back) - ANESTHESIA Hx Anesthesia: Yes Hx Anesthesia Reactions: No Meds Allergies/Adverse Reactions: Allergies Allergy/AdvReac Type Severity Reaction Status Date / Time No Known Allergies Allergy Verified 05/17/15 19:52 - Medications Medications: Current Medications Acetaminophen (Tylenol 325mg Tab) 650 mg PO Q6 PRN PRN Reason: Fever >100.4 F Heparin Sodium (Porcine) (Heparin) 5,000 units SC Q12 MIKI Sodium Chloride (Sodium Chloride 0.9%) 1,000 mls @ 100 mls/hr IV .Q10H MIKI Last Admin: 08/23/18 09:15 Dose: Not Given Ciprofloxacin (Cipro 400mg/200ml Dsw) 400 mg in 200 mls @ 133 mls/hr IVPB Q12H MIKI; Protocol Last Admin: 08/23/18 07:08 Dose: 133 mls/hr Metronidazole (Flagyl) 500 mg in 100 mls @ 100 mls/hr IVPB Q12 MIKI; Protocol Last Admin: 08/23/18 10:29 Dose: 100 mls/hr Lisinopril (Zestril) 10 mg PO DAILY [facility] Last Admin: 08/23/18 09:14 Dose: 10 mg Lorazepam (Ativan) 1 mg PO HS MIKI Last Admin: 08/23/18 03:52 Dose: 1 mg Morphine Sulfate (Morphine) 1 mg IVP Q6 PRN PRN Reason: Pain, moderate (4-7) Last Admin: 08/23/18 09:16 Dose: 1 mg Oxymetazoline HCl (Afrin 0.05%) 1 ml NS Q12H MIKI Last Admin: 08/23/18 00:49 Dose: 1 ml Pantoprazole Sodium (Protonix Inj) 40 mg IVP Q12H MIKI Last Admin: 08/23/18 09:14 Dose: 40 mg Topiramate (Topamax) 30 mg PO DAILY [facility] Physical Exam - Constitutional Appears: Non-toxic, No Acute Distress - Head Exam Head Exam: NORMAL INSPECTION - Eye Exam Eye Exam: Normal appearance - ENT Exam ENT Exam: Mucous Membranes Moist, Normal Exam - Neck Exam Neck exam: Positive for: Normal Inspection - Respiratory Exam Respiratory Exam: Clear to Auscultation Bilateral, NORMAL BREATHING PATTERN. absent: Rales, Rhonchi, Wheezes, Respiratory Distress - Cardiovascular Exam Cardiovascular Exam: REGULAR RHYTHM, +S1, +S2 - GI/Abdominal Exam GI & Abdominal Exam: Hyperactive Bowel Sounds, Soft, Tenderness (LLQ and LUQ). absent: Diminished Bowel Sounds, Distended, Firm, Guarding, Hernia, Organomegaly Additional comments: infraumbilical incision scar - Rectal Exam Rectal Exam: absent: Black Stool, Bloody Stool, Fecal Impaction Additional comments: liquid brown stool in the vault - Extremities Exam Extremities exam: Positive for: joint swelling, pedal edema - Back Exam Back exam: NORMAL INSPECTION - Neurological Exam Neurological exam: Alert, Oriented x3 - Psychiatric Exam Psychiatric exam: Anxious - Skin Skin Exam: Dry, Intact, Normal Color, Warm Results - Vital Signs Recent Vital Signs: Last Vital Signs Temp 99.5 F 08/23/18 07:47 Pulse 95 H 08/23/18 07:47 Resp 20 08/23/18 07:47 BP 131/79 08/23/18 07:47 Pulse Ox 100 08/23/18 07:47 - Labs Result Diagrams: 08/23/18 10:50 08/23/18 10:50 Labs: Laboratory Results - last 24 hr 08/22/18 08/22/18 08/22/18 18:27 18:27 18:27 WBC 7.7 RBC 4.70 Hgb 14.3 Hct 40.3 MCV 85.7 D MCH 30.3 MCHC 35.4 RDW 13.0 Plt Count 131 MPV 8.8 Neut % (Auto) 79.1 H Lymph % (Auto) 8.6 L [place] % (Auto) 11.9 H Eos % (Auto) 0.3 Baso % (Auto) 0.1 Neut # (Auto) 6.1 Lymph # (Auto) 0.7 L [place] # (Auto) 0.9 H Eos # (Auto) 0.0 Baso # (Auto) 0.0 Neutrophils % (Manual) 63 Band Neutrophils % 12 H* Lymphocytes % (Manual) 8 L Monocytes % (Manual) 17 H Platelet Estimate Normal Sodium 126 L Potassium 4.9 Chloride 97 L Carbon Dioxide 20 L Anion Gap 14 BUN 14 Creatinine 0.9 Est GFR ( Amer) > 60 Est GFR (Non-Af Amer) > 60 Random Glucose 70 L D Lactic Acid Calcium 8.9 Total Bilirubin 0.9 AST 77 H D ALT 41 Alkaline Phosphatase 33 L D Total Protein 6.0 L Albumin 3.3 L Globulin 2.7 Albumin/Globulin Ratio 1.2 Lipase 60 Urine Color Straw Urine Clarity Clear Urine pH 6.0 Ur Specific [place] 1.002 L Urine Protein Negative Urine Glucose (UA) Normal Urine Ketones Negative Urine Blood Trace H Urine Nitrate Negative Urine Bilirubin Negative Urine Urobilinogen Normal Ur Leukocyte Esterase Neg Urine WBC (Auto) < 1 Urine RBC (Auto) < 1 Stool Occult Blood 08/22/18 08/23/18 08/23/18 18:45 09:04 10:50 WBC 6.1 RBC 4.33 L Hgb 13.3 Hct 37.6 MCV 86.9 MCH 30.7 MCHC 35.4 RDW 13.2 Plt Count 147 MPV 8.8 Neut % (Auto) 70.9 Lymph % (Auto) 13.2 L [place] % (Auto) 15.6 H Eos % (Auto) 0.1 Baso % (Auto) 0.2 Neut # (Auto) 4.3 Lymph # (Auto) 0.8 L [place] # (Auto) 1.0 H Eos # (Auto) 0.0 Baso # (Auto) 0.0 Neutrophils % (Manual) Band Neutrophils % Lymphocytes % (Manual) Monocytes % (Manual) Platelet Estimate Sodium Potassium Chloride Carbon Dioxide Anion Gap BUN Creatinine Est GFR ( Amer) Est GFR (Non-Af Amer) Random Glucose Lactic Acid 1.1 Calcium Total Bilirubin AST ALT Alkaline Phosphatase Total Protein Albumin Globulin Albumin/Globulin Ratio Lipase Urine Color Urine Clarity Urine pH Ur Specific [place] Urine Protein Urine Glucose (UA) Urine Ketones Urine Blood Urine Nitrate Urine Bilirubin Urine Urobilinogen Ur Leukocyte Esterase Urine WBC (Auto) Urine RBC (Auto) Stool Occult Blood Positive H 08/23/18 10:50 WBC RBC Hgb Hct MCV MCH MCHC RDW Plt Count MPV Neut % (Auto) Lymph % (Auto) [place] % (Auto) Eos % (Auto) Baso % (Auto) Neut # (Auto) Lymph # (Auto) [place] # (Auto) Eos # (Auto) Baso # (Auto) Neutrophils % (Manual) Band Neutrophils % Lymphocytes % (Manual) Monocytes % (Manual) Platelet Estimate Sodium 136 Potassium 3.4 L Chloride 102 Carbon Dioxide 25 Anion Gap 11 BUN 12 Creatinine 1.0 Est GFR ( Amer) > 60 Est GFR (Non-Af Amer) > 60 Random Glucose 100 D Lactic Acid Calcium 8.4 L Total Bilirubin 0.5 AST 53 ALT 45 Alkaline Phosphatase 36 L Total Protein 5.3 L Albumin 3.0 L Globulin 2.2 Albumin/Globulin Ratio 1.4 Lipase Urine Color Urine Clarity Urine pH Ur Specific [place] Urine Protein Urine Glucose (UA) Urine Ketones Urine Blood Urine Nitrate Urine Bilirubin Urine Urobilinogen Ur Leukocyte Esterase Urine WBC (Auto) Urine RBC (Auto) Stool Occult Blood Assessment & Plan - Assessment and Plan (Free Text) Assessment: Joe Ferris is a 47M w/ hx of depression, OA, HTn who presents to the ER with complaints of abd pain, rectalbleeding, and diarrhea. CT revealed left side d colitis. Left sided Colitis, etiology unclear DDx: infectious, IBD, polyp, malignancy Diarrhea etiology likely 2/2 above Abd pain, 2/2 above Nausea 2/2 above Plan: -hgb stable -transfuse if hgb < 7 -continue IV protonix 40mg daily -start liquid diet -recommend stool cultures, c.diff -continue cipro and flagyl -will need an eventual colonoscopy, no plan as of now, will determine based on clinical course -repeat cbc now will D/W Dr. Mcknight <Pancho Mcknight - Last Filed: 08/23/18 13:32> Meds - Medications Medications: Current Medications Acetaminophen (Tylenol 325mg Tab) 650 mg PO Q6 PRN PRN Reason: Fever >100.4 F Sodium Chloride (Sodium Chloride 0.9%) 1,000 mls @ 100 mls/hr IV .Q10H [facility] Last Admin: 08/23/18 13:16 Dose: 100 mls/hr Ciprofloxacin (Cipro 400mg/200ml Dsw) 400 mg in 200 mls @ 133 mls/hr IVPB Q12H [facility]; Protocol Last Admin: 08/23/18 07:08 Dose: 133 mls/hr Metronidazole (Flagyl) 500 mg in 100 mls @ 100 mls/hr IVPB Q12 [facility]; Protocol Last Admin: 08/23/18 10:29 Dose: 100 mls/hr Lisinopril (Zestril) 10 mg PO DAILY [facility] Last Admin: 08/23/18 09:14 Dose: 10 mg Lorazepam (Ativan) 1 mg PO HS [facility] Last Admin: 08/23/18 03:52 Dose: 1 mg Morphine Sulfate (Morphine) 1 mg IVP Q6 PRN PRN Reason: Pain, moderate (4-7) Last Admin: 08/23/18 09:16 Dose: 1 mg Oxymetazoline HCl (Afrin 0.05%) 1 ml NS Q12H [facility] Last Admin: 08/23/18 00:49 Dose: 1 ml Pantoprazole Sodium (Protonix Inj) 40 mg IVP Q12H [facility] Last Admin: 08/23/18 09:14 Dose: 40 mg Topiramate (Topamax) 50 mg PO DAILY [facility] Results - Vital Signs Recent Vital Signs: Last Vital Signs Temp 99.5 F 08/23/18 07:47 Pulse 83 08/23/18 12:00 Resp 20 08/23/18 07:47 BP 131/79 08/23/18 07:47 Pulse Ox 100 08/23/18 07:47 - Labs Result Diagrams: 08/23/18 10:50 08/23/18 10:50 Labs: Laboratory Results - last 24 hr 08/22/18 08/22/18 08/22/18 18:27 18:27 18:27 WBC 7.7 RBC 4.70 Hgb 14.3 Hct 40.3 MCV 85.7 D MCH 30.3 MCHC 35.4 RDW 13.0 Plt Count 131 MPV 8.8 Neut % (Auto) 79.1 H Lymph % (Auto) 8.6 L [place] % (Auto) 11.9 H Eos % (Auto) 0.3 Baso % (Auto) 0.1 Neut # (Auto) 6.1 Lymph # (Auto) 0.7 L [place] # (Auto) 0.9 H Eos # (Auto) 0.0 Baso # (Auto) 0.0 Neutrophils % (Manual) 63 Band Neutrophils % 12 H* Lymphocytes % (Manual) 8 L Monocytes % (Manual) 17 H Platelet Estimate Normal Sodium 126 L Potassium 4.9 Chloride 97 L Carbon Dioxide 20 L Anion Gap 14 BUN 14 Creatinine 0.9 Est GFR ( Amer) > 60 Est GFR (Non-Af Amer) > 60 Random Glucose 70 L D Lactic Acid Calcium 8.9 Total Bilirubin 0.9 AST 77 H D ALT 41 Alkaline Phosphatase 33 L D Total Protein 6.0 L Albumin 3.3 L Globulin 2.7 Albumin/Globulin Ratio 1.2 Lipase 60 Urine Color Straw Urine Clarity Clear Urine pH 6.0 Ur Specific [place] 1.002 L Urine Protein Negative Urine Glucose (UA) Normal Urine Ketones Negative Urine Blood Trace H Urine Nitrate Negative Urine Bilirubin Negative Urine Urobilinogen Normal Ur Leukocyte Esterase Neg Urine WBC (Auto) < 1 Urine RBC (Auto) < 1 Stool Occult Blood 08/22/18 08/23/18 08/23/18 18:45 09:04 10:50 WBC 6.1 RBC 4.33 L Hgb 13.3 Hct 37.6 MCV 86.9 MCH 30.7 MCHC 35.4 RDW 13.2 Plt Count 147 MPV 8.8 Neut % (Auto) 70.9 Lymph % (Auto) 13.2 L [place] % (Auto) 15.6 H Eos % (Auto) 0.1 Baso % (Auto) 0.2 Neut # (Auto) 4.3 Lymph # (Auto) 0.8 L [place] # (Auto) 1.0 H Eos # (Auto) 0.0 Baso # (Auto) 0.0 Neutrophils % (Manual) Band Neutrophils % Lymphocytes % (Manual) Monocytes % (Manual) Platelet Estimate Sodium Potassium Chloride Carbon Dioxide Anion Gap BUN Creatinine Est GFR ( Amer) Est GFR (Non-Af Amer) Random Glucose Lactic Acid 1.1 Calcium Total Bilirubin AST ALT Alkaline Phosphatase Total Protein Albumin Globulin Albumin/Globulin Ratio Lipase Urine Color Urine Clarity Urine pH Ur Specific [place] Urine Protein Urine Glucose (UA) Urine Ketones Urine Blood Urine Nitrate Urine Bilirubin Urine Urobilinogen Ur Leukocyte Esterase Urine WBC (Auto) Urine RBC (Auto) Stool Occult Blood Positive H 08/23/18 10:50 WBC RBC Hgb Hct MCV MCH MCHC RDW Plt Count MPV Neut % (Auto) Lymph % (Auto) [place] % (Auto) Eos % (Auto) Baso % (Auto) Neut # (Auto) Lymph # (Auto) [place] # (Auto) Eos # (Auto) Baso # (Auto) Neutrophils % (Manual) Band Neutrophils % Lymphocytes % (Manual) Monocytes % (Manual) Platelet Estimate Sodium 136 Potassium 3.4 L Chloride 102 Carbon Dioxide 25 Anion Gap 11 BUN 12 Creatinine 1.0 Est GFR ( Amer) > 60 Est GFR (Non-Af Amer) > 60 Random Glucose 100 D Lactic Acid Calcium 8.4 L Total Bilirubin 0.5 AST 53 ALT 45 Alkaline Phosphatase 36 L Total Protein 5.3 L Albumin 3.0 L Globulin 2.2 Albumin/Globulin Ratio 1.4 Lipase Urine Color Urine Clarity Urine pH Ur Specific [place] Urine Protein Urine Glucose (UA) Urine Ketones Urine Blood Urine Nitrate Urine Bilirubin Urine Urobilinogen Ur Leukocyte Esterase Urine WBC (Auto) Urine RBC (Auto) Stool Occult Blood Attending/Attestation - Attestation I have personally seen and examined this patient.: Yes I have fully participated in the care of the patient.: Yes I have reviewed all pertinent clinical information: Yes Notes (Text): 08/23/18 13:28 I have seen and examined patient. Agree with above documentation with the following additions. In brief, this is a 47 year old male with history of HTN, depression, sleep apnea, who presents to hospital with complaint of sudden onset abdominal pain and diarrhea which awoke him from sleep early morning at 3 am. He consumed salmon purchased from [employer] the evening before. He reports having up to 20 loose bowel movements along with crampy abdominal pain and subjective fever. As the diarrhea progressed he began to note blood in stool. He denies weight loss, recent travel, sick contacts, or antibiotic use. No prior colonoscopy. Abdominal pain, rectal bleeding - colitis - Liquid diet as tolerated - Follow up stool studies - Continue with antibiotic therapy - H/H stable, continue to monitor - Anti-emetic therapy PRN - Patient requesting CPAP machine for sleep tonight, discussed with nursing staff - Will continue to monitor patient clinical course
[2018-08-23] MEDS ORDERED: Potassium Chloride 20 mEq ER Tab PO ONE (12:45)
[2018-08-24] MEDS: Sodium Chloride 0.9% 1,000 ML IV SCH ×2 (04:46→14:57)
[2018-08-24 08:02] VITALS: O2SAT 100
[2018-08-24 08:03] LABS: BASO % 0.6 % (0.0-2.0); EOS % 1.3 % (0.0-4.0); HEMOGLOBIN 12.9 g/dL (12.0-18.0); LYMPH # 1.1 K/uL (1.0-4.3); LYMPH % 30.9 % (20.0-40.0); MEAN CELL VOLUME 86.8 fL (80.0-94.0); MEAN CORPUSCULAR HEMOGLOBIN 31.2 pg (27.0-31.0); MEAN CORPUSCULAR HGB CONC 35.9 g/dL (33.0-37.0); MEAN PLATELET VOLUME 8.3 fL (7.2-11.7); MONO # 0.7 K/uL (0.0-0.8); MONO % 21.1 % (0.0-10.0); NEUT # 1.6 K/uL (1.8-7.0); NEUT % 46.1 % (50.0-75.0); NRBC % 0.1 % (0.0-2.0); PLATELET COUNT 147 K/uL (130-400); RBC 4.12 Mil/uL (4.40-5.90); WHITE BLOOD COUNT 3.5 K/uL (4.8-10.8)
[2018-08-24 08:25] LABS: ALB/GLOB RATIO 1.2 (1.0-2.1); ALBUMIN 2.8 g/dL (3.5-5.0); ALT/SGPT 44 U/L (21-72); AST/SGOT 37 U/L (17-59); BLOOD UREA NITROGEN 10 mg/dL (9-20); CALCIUM 8.4 mg/dl (8.6-10.4); GFR NON-AFRICAN AMERICAN > 60
--- NOTE | 2018-08-24 08:34 | CP.PCM.PN ---
Subjective - Date & Time of Evaluation Date of Evaluation: 08/24/18 Time of Evaluation: 08:31 - Subjective Subjective: Patient seen and examined, resting comfortably in bed. No acute events overnight. His abdominal pain and bowel habit frequency have both significantly improved. He had two loose bowel movements overnight, none this morning. Tolerating PO liquids without difficulty. Review of vitals from today are normal. 12 point review of systems performed, negative aside from mentioned above. Objective - Vital Signs/Intake and Output Vital Signs (last 24 hours): Temp Pulse Resp BP Pulse Ox 97.9 F 73 20 114/72 100 08/24/18 08:00 08/24/18 08:00 08/24/18 08:00 08/24/18 08:00 08/24/18 08:00 Intake and Output: 08/24/18 08/24/18 06:59 18:59 Intake Total 800 Output Total 800 Balance 0 - Medications Medications: Current Medications Acetaminophen (Tylenol 325mg Tab) 650 mg PO Q6 PRN PRN Reason: Fever >100.4 F Sodium Chloride (Sodium Chloride 0.9%) 1,000 mls @ 100 mls/hr IV .Q10H [facility] Last Admin: 08/24/18 04:46 Dose: 100 mls/hr Ciprofloxacin (Cipro 400mg/200ml Dsw) 400 mg in 200 mls @ 133 mls/hr IVPB Q12H [facility]; Protocol Last Admin: 08/23/18 18:00 Dose: 133 mls/hr Metronidazole (Flagyl) 500 mg in 100 mls @ 100 mls/hr IVPB Q12 [facility]; Protocol Last Admin: 08/23/18 21:06 Dose: 100 mls/hr Lisinopril (Zestril) 10 mg PO DAILY [facility] Last Admin: 08/23/18 09:14 Dose: 10 mg Lorazepam (Ativan) 1 mg PO HS [facility] Last Admin: 08/23/18 21:14 Dose: 1 mg Morphine Sulfate (Morphine) 1 mg IVP Q6 PRN PRN Reason: Pain, moderate (4-7) Last Admin: 08/24/18 02:25 Dose: 1 mg Oxymetazoline HCl (Afrin 0.05%) 1 ml NS Q12H [facility] Last Admin: 08/23/18 00:49 Dose: 1 ml Pantoprazole Sodium (Protonix Inj) 40 mg IVP Q12H [facility] Last Admin: 08/23/18 21:12 Dose: 40 mg Topiramate (Topamax) 50 mg PO HS [facility] Last Admin: 08/23/18 21:29 Dose: 50 mg - Labs Labs: 08/24/18 07:53 08/24/18 07:53 - Constitutional Appears: Non-toxic, No Acute Distress - Head Exam Head Exam: NORMAL INSPECTION - Eye Exam Eye Exam: EOMI, Normal appearance - ENT Exam ENT Exam: Mucous Membranes Moist - Respiratory Exam Respiratory Exam: Clear to Ausculation Bilateral - Cardiovascular Exam Cardiovascular Exam: REGULAR RHYTHM, +S1, +S2 - GI/Abdominal Exam GI & Abdominal Exam: Soft, Normal Bowel Sounds Additional comments: non tender to palpation in four quadrants - Extremities Exam Extremities Exam: Normal Inspection - Skin Skin Exam: Dry, Intact, Normal Color, Warm Assessment and Plan - Assessment and Plan (Free Text) Assessment: Abdominal pain, diarrhea - resolving colitis, presumed infectious given clinical scenario Depression Sleep apnea Plan: - Will advance diet as tolerated - Follow up stool study results - Continue with antibiotic therapy to complete 7 day course - Patient would benefit from outpatient colonoscopy 6 weeks following resolution of acute symptoms - If patient tolerating diet, from GI standpoint ok to discharge home with subsequent outpatient follow up. Office contact information provided to patient.
[2018-08-24] MEDS: metroNIDAZOLE IV 500 mg/100 ml 500 MG/100 ML BAG IVPB SCH (09:59)
[2018-08-24 11:21] LABS: ANISOCYTOSIS SLIGHT; BANDS 5 % (0-2); LYMPHOCYTE 33 % (20-40); MONOCYTE 20 % (0-10); NEUTROPHIL 42 % (50-75); PLATELET ESTIMATE NORMAL (NORMAL); TOTAL CELLS COUNTED 100
[2018-08-24] MEDS: Oxymetazoline 0.05% Nasal Spray (30 ml) NS SCH (13:00)
[2018-08-24 17:09] VITALS: BP 120/77; PULSE 68; TEMP 98.8
[2018-08-24] MEDS ORDERED: Magnesium Hydroxide Susp 30 ml UD PO ONE (18:58)
--- NOTE | 2018-08-24 19:00 | CP.PCM.PN ---
Subjective - Date & Time of Evaluation Date of Evaluation: 08/24/18 - Subjective Subjective: patient seen and examined today no nausea no vomiting no dizziness no diarrhea no fever no shortness of breath Objective - Vital Signs/Intake and Output Vital Signs (last 24 hours): Temp Pulse Resp BP Pulse Ox 98.8 F 68 20 120/77 100 08/24/18 15:00 08/24/18 15:00 08/24/18 15:00 08/24/18 15:00 08/24/18 15:00 Intake and Output: 08/24/18 08/24/18 06:59 18:59 Intake Total 800 1200 Output Total 800 Balance 0 1200 - Medications Medications: Current Medications Acetaminophen (Tylenol 325mg Tab) 650 mg PO Q6 PRN PRN Reason: Fever >100.4 F Last Admin: 08/24/18 09:32 Dose: 650 mg Sodium Chloride (Sodium Chloride 0.9%) 1,000 mls @ 100 mls/hr IV .Q10H [facility] Last Admin: 08/24/18 14:57 Dose: Not Given Ciprofloxacin (Cipro 400mg/200ml Dsw) 400 mg in 200 mls @ 133 mls/hr IVPB Q12H [facility]; Protocol Last Admin: 08/23/18 18:00 Dose: 133 mls/hr Metronidazole (Flagyl) 500 mg in 100 mls @ 100 mls/hr IVPB Q12 [facility]; Protocol Last Admin: 08/24/18 09:59 Dose: 100 mls/hr Lisinopril (Zestril) 10 mg PO DAILY [facility] Last Admin: 08/24/18 09:30 Dose: 10 mg Lorazepam (Ativan) 1 mg PO HS [facility] Last Admin: 08/23/18 21:14 Dose: 1 mg Magnesium Hydroxide (Milk Of Magnesia) 30 ml PO ONCE ONE Stop: 08/24/18 18:59 Morphine Sulfate (Morphine) 1 mg IVP Q6 PRN PRN Reason: Pain, moderate (4-7) Last Admin: 08/24/18 02:25 Dose: 1 mg Oxymetazoline HCl (Afrin 0.05%) 1 ml NS Q12H [facility] Last Admin: 08/24/18 13:00 Dose: Not Given Pantoprazole Sodium (Protonix Inj) 40 mg IVP Q12H [facility] Last Admin: 08/24/18 09:29 Dose: 40 mg Topiramate (Topamax) 50 mg PO HS [facility] Last Admin: 08/23/18 21:29 Dose: 50 mg - Labs Labs: 08/24/18 07:53 08/24/18 07:53 - Constitutional Appears: Well - Head Exam Head Exam: ATRAUMATIC, NORMAL INSPECTION, NORMOCEPHALIC - Eye Exam Eye Exam: EOMI, Normal appearance, PERRL Pupil Exam: NORMAL ACCOMODATION, PERRL - ENT Exam ENT Exam: Mucous Membranes Moist, Normal Exam - Neck Exam Neck Exam: Full ROM, Normal Inspection. absent: Lymphadenopathy - Respiratory Exam Respiratory Exam: Decreased Breath Sounds - Cardiovascular Exam Cardiovascular Exam: REGULAR RHYTHM, +S1, +S2 - GI/Abdominal Exam GI & Abdominal Exam: Soft, Diminished Bowel Sounds - Rectal Exam Rectal Exam: Deferred - Neurological Exam Neurological Exam: Oriented x3 Assessment and Plan - Assessment and Plan (Free Text) Plan: plan discussed with patient moderate complexity of care afrin ativan cipro flagyl milk of Mag morphine protonix inj sodium chloride topamax tylenol zestril medications reviewed vitals reviewed labs reviewed
[2018-08-24] MEDS: Ciprofloxacin 400mg/200ml D5W 400 MG/200 ML BAG IVPB SCH (19:02)
== END 2018-08-24 19:40 | disposition home or self-care (01) | DRG 392 ==
LOC: C.ER 16:17 → C.9E 20:55 → C.5S 22:25
PROVIDERS: ADMIT Internal Medicine Nephrology; ATTEND Internal Medicine Nephrology
DX: A08.4 Viral intestinal infection, unspecified (principal); K51.50 Left sided colitis without complications; I10 Essential (primary) hypertension; G47.33 Obstructive sleep apnea (adult) (pediatric); F32.9 Major depressive disorder, single episode, unspecified; K59.09 Other constipation